=== PATIENT | male | born 1970 | race Caucasian/White ===

== ENCOUNTER → 2016-09-22 | Outpatient (CLI) | payer OTHER ==
--- NOTE | 2016-09-22 11:23 | DX ---
AP Pelvis History: Pain for 4 months with no injury. Comparison: Sacroiliac joints May 07, 2014. Findings: Contour irregularity of the sacroiliac joints with small associated erosions appears incre ased since the comparison. No fracture is identified. The pubic symphysis appears normal. There is no significant degenerative change in the hips. Vasectomy clips are noted. Transitional vertebra is not ed at the lumbosacral junction. Impression: Mild increase in sacroiliitis.
== END ==
LOC: BMCIMAGING 09:21
PROVIDERS: ATTEND Internal Medicine Rheumatology
DX: M46.1 Sacroiliitis, not elsewhere classified (principal)

== ENCOUNTER 2017-12-19 10:54 | Emergency (ER) | payer OTHER ==
--- NOTE | 2017-12-19 11:29 | CPEKG ---
Heart Rate: 73 RR Interval: 822 P-R Interval: 152 QRSD Interval: 84 QT Interval: 404 QTC Interval: 446 P Paragon: 84 QRS Paragon: 81 T Wave Paragon: 39 EKG Severity - NORMAL ECG - EKG Impression: SINUS RHYTHM Electronically Signed By: Oswaldo Jacobson 19-Dec-2017 16:12:31
[2017-12-19 11:43] LABS: PLATELET COUNT 226 10^3/uL (150-400)
--- NOTE | 2017-12-19 12:20 | EDPHY ---
H & P Time Seen by Provider: 12/19/17 11:49 HPI/ROS: Chief complaint. Chest pain HPI. Patient is a 46-year-old male presents emergency department with 10 day history of heaviness in his chest. He describes as central and heavy. No radiation. It is present really only in the afternoon and evening and when lying down. It has been present every afternoon and evening for the last 7-10 days. He has no increased chest discomfort with exertion such as riding his bicycle or breathing. He feels that he may have to work slightly harder to breathe. He has had no fever or cough. No abdominal pain or vomiting or diarrhea. No unusual leg pain or swelling. Patient tells me he is under a great deal of stress with his own health problems in his has cancer. He gets tearful telling me about this when I asked him ROS Constitutional. no fever/chills, no weakness Eyes. no problems with vision ENT. no sore throat, no nasal drainage Cardiovascular. Chest heaviness Respiratory. Slight shortness of breath Abdominal. no abdominal pain, no nausea/vomiting, no diarrhea . no problems urinating MS. no calf pain/swelling, no neck/back pain, no joint pain Skin. no rash Lymph. no swollen glands Neuro. no headache, no dizziness, no difficulty walking or with speech Past Medical/Surgical History: Ankylosing spondylitis Family history negative for early coronary artery disease. Father had a carotid stent at age 75 Social History: , nonsmoker, no alcohol Smoking Status: Never smoked Physical Exam: General Appearance: Alert well-developed male mild distress vital signs are stable Eyes: Pupils equal and round no pallor or injection. ENT, Mouth: Mucous membranes are moist. Respiratory: There are no retractions, lungs are clear to auscultation. Cardiovascular: Regular rate and rhythm. Gastrointestinal: Abdomen is soft and nontender, no masses, bowel sounds normal. Neurological: Awake and alert, sensory and motor exams grossly normal. Skin: Warm and dry, no rashes. Musculoskeletal: Neck is supple nontender. Extremities symmetrical, full range of motion. Psychiatric: Patient is oriented X 3, there is no agitation. Constitutional: Initial Vital Signs Temperature (C) 36.6 C 12/19/17 11:00 Heart Rate 79 12/19/17 11:00 Respiratory Rate 18 12/19/17 11:00 Blood Pressure 147/94 H 12/19/17 11:00 O2 Sat (%) 99 12/19/17 11:00 O2 Delivery Mode Room Air Allergies/Adverse Reactions: Penicillins Allergy (Verified 12/19/17 10:59) Home Medications: Medication Instructions Recorded Humira 12/19/17 Medical Decision Making - Diagnostics EKG Interpretation: EKG interpreted by me shows normal sinus rhythm normal interval and axis. QRS is normal there is no significant ST elevation or depression. There is no arrhythmia. The rate is 73 Imaging Results: Imaging Impressions Chest X-Ray 12/19/17 11:38 Impression: Negative chest. Chest x-ray interpreted by me is normal Procedures: IV normal saline, monitor ED Course/Re-evaluation: Re-evaluation at 1:10 p.m.-- Patient is stable and without symptoms. Patient and I discussed imaging, lab, EKG findings. We discussed treatment plan including criteria for return and recommendation for follow-up and further evaluation. He has an appointment with his right physician on Wednesday. He expresses understanding and agreement Differential Diagnosis: 7-10 day history of chest discomfort every afternoon evening that is not worse with exertion or breathing. He has a completely normal workup including EKG, chest x-ray, and laboratory. He really has no risk factors for early coronary artery disease. He is under a lot of stress and I suspect that this is more stress anxiety. I have considered acute coronary syndrome, pneumonia, aortic dissection, congestive heart failure, pulmonary embolus - Data Points Laboratory Results: Laboratory Results 12/19/17 11:30 12/19/17 11:30 12/19/17 12/19/17 12/19/17 11:30 11:30 11:30 WBC RBC Hgb Hct MCV MCH MCHC RDW Plt Count MPV Neut % (Auto) Lymph % (Auto) [place] % (Auto) Eos % (Auto) Baso % (Auto) Nucleat RBC Rel Count Absolute Neuts (auto) Absolute Lymphs (auto) Absolute Monos (auto) Absolute Eos (auto) Absolute Basos (auto) Absolute Nucleated RBC Immature Gran % Immature Gran # D-Dimer < 0.27 ug/mLFEU ug/mLFEU (0.00-0.50) Sodium 142 mEq/L mEq/L (135-145) Potassium 4.3 mEq/L mEq/L (3.5-5.2) Chloride 103 mEq/L mEq/L (97-110) Carbon Dioxide 28 mEq/l mEq/l (22-31) Anion Gap 11 mEq/L mEq/L (8-16) BUN 21 mg/dL mg/dL (7-23) Creatinine 0.9 mg/dL mg/dL (0.7-1.3) Estimated GFR > 60 Glucose 90 mg/dL mg/dL (70-100) Calcium 9.3 mg/dL mg/dL (8.5-10.4) Troponin I < 0.012 ng/mL ng/mL (0.000-0.034) NT-Pro-B Natriuret Pep 37 pg/mL pg/mL (0-125) 12/19/17 11:30 WBC 4.76 10^3/uL 10^3/uL (3.80-9.50) RBC 4.99 10^6/uL 10^6/uL (4.40-6.38) Hgb 15.8 g/dL g/dL (13.7-17.5) Hct 45.8 % % (40.0-51.0) MCV 91.8 fL fL (81.5-99.8) MCH 31.7 pg pg (27.9-34.1) MCHC 34.5 g/dL g/dL (32.4-36.7) RDW 12.0 % % (11.5-15.2) Plt Count 226 10^3/uL 10^3/uL (150-400) MPV 8.9 fL fL (8.7-11.7) Neut % (Auto) 43.3 % % (39.3-74.2) Lymph % (Auto) 43.1 % % (15.0-45.0) [place] % (Auto) 11.1 % % (4.5-13.0) Eos % (Auto) 1.7 % % (0.6-7.6) Baso % (Auto) 0.6 % % (0.3-1.7) Nucleat RBC Rel Count 0.0 % % (0.0-0.2) Absolute Neuts (auto) 2.06 10^3/uL 10^3/uL (1.70-6.50) Absolute Lymphs (auto) 2.05 10^3/uL 10^3/uL (1.00-3.00) Absolute Monos (auto) 0.53 10^3/uL 10^3/uL (0.30-0.80) Absolute Eos (auto) 0.08 10^3/uL 10^3/uL (0.03-0.40) Absolute Basos (auto) 0.03 10^3/uL 10^3/uL (0.02-0.10) Absolute Nucleated RBC 0.00 10^3/uL 10^3/uL (0-0.01) Immature Gran % 0.2 % % (0.0-1.1) Immature Gran # 0.01 10^3/uL 10^3/uL (0.00-0.10) D-Dimer Sodium Potassium Chloride Carbon Dioxide Anion Gap BUN Creatinine Estimated GFR Glucose Calcium Troponin I NT-Pro-B Natriuret Pep Departure - Departure Disposition: Home, Routine, Self-Care Clinical Impression: Chest pain Qualifiers: Chest pain type: unspecified Qualified Code(s): R07.9 - Chest pain, unspecified Condition: Good Instructions: Chest Pain (ED) Additional Instructions: Easy activity the next several days until you see your physician. Return for worsening symptoms. Keep follow-up appointment on Wednesday. Referrals: Deborah Joseph MD [Primary Care Provider] - 2-3 days without fail
[2017-12-19 13:47] VITALS: BP 142/75
== END 2017-12-19 13:47 | disposition home or self-care (01) ==
DX: R07.9 Chest pain, unspecified (principal)

== ENCOUNTER → 2018-01-17 | Outpatient (CLI) | payer OTHER | LOC: BMCIMAGING 14:17 | PROVIDERS: ATTEND Internal Medicine Rheumatology | DX: M19.071 Primary osteoarthritis, right ankle and foot (principal) ==

== ENCOUNTER → 2018-03-24 | Outpatient (CLI) | payer OTHER | LOC: FIMAGING 07:06 | PROVIDERS: ATTEND Family Medicine | DX: R17 Unspecified jaundice (principal) ==

== ENCOUNTER → 2018-12-05 | Outpatient (CLI) | payer OTHER | LOC: FIMAGING 09:51 | PROVIDERS: ATTEND Physical Medicine & Rehabilitation | DX: M46.1 Sacroiliitis, not elsewhere classified (principal); M24.811 Other specific joint derangements of right shoulder, not elsewhere classified; M24.812 Other specific joint derangements of left shoulder, not elsewhere classified; M24.872 Other specific joint derangements of left ankle, not elsewhere classified; M25.861 Other specified joint disorders, right knee; M25.862 Other specified joint disorders, left knee | CPT/HCPCS: 78306; A9503 ==